=== PATIENT | male | born 1940 | race Two or more races ===

== ENCOUNTER 2024-01-21 08:13 | Emergency (ER) | payer MEDICAID, OTHER ==
[~2024-01-21] VITALS: Ht 167.6 cm; Wt 73.0 kg
[2024-01-21 09:26] VITALS: BP 170/86; PULSE 82; RESP 16; TEMP 97.8; O2SAT 98
[2024-01-21] MEDS ORDERED: LIDO5DIS21 TOP (11:18)
== END 2024-01-21 11:18 | disposition home or self-care (01) ==
LOC: ER 08:13 → EDBD 08:13 → ER 11:18
DX: S40.011A Contusion of right shoulder, initial encounter (principal); Z79.899 Other long term (current) drug therapy; W01.198A Fall on same level from slipping, tripping and stumbling with subsequent striking against other object, initial encounter; Y93.89 Activity, other specified; Y92.89 Other specified places as the place of occurrence of the external cause; Y99.8 Other external cause status
CPT/HCPCS: 73030